=== PATIENT | female | born 1945 | race Caucasian/White ===

== ENCOUNTER 2017-02-26 13:14 | Outpatient (CLI) | payer MEDICARE, OTHER ==
--- NOTE | 2017-02-27 09:17 | PET ---
PET CT: HISTORY: A 71-year-old female with recently diagnosed colon cancer (rectal). Exam requested for initial stagi ng. TECHNIQUE: PET scanning with CT attenuation correction was performed from the base of the brain through the prox imal thighs following intravenous administration of 12.1 mCi [id number] in the right wris t. Imaging was performed after an uptake interval of 46 minutes. FINDINGS: There is intense uptake in the rectosigmoid with an SUV of 19.3. No christopher hypermetabolism is seen in the pelvis, inguinal regions, abdomen, chest, axillae, or neck. No hypermetabolic liver, adrenal, or skeletal lesions are identified. There is physiologic activity in the GI and tracts and the visualized portions of the brain. The CT scan used for attenuation correction demonstrates no evidence of pleural effusions or ascites. There are changes of fatty infiltration of the liver. A 2.7 cm nonhypermetabolic left adrenal nodu le is seen with Hounsfield units less than 10, consistent with adenoma. There is sigmoid diverticulo sis. There is a 1.9 cm exophytic mass arising over the left anterior renal cortex. IMPRESSION: 1. No evidence of distant metastatic disease. 2. Left renal mass. This should be evaluated with a renal ultrasound. POS: MAYRA
== END 2017-02-26 13:15 | disposition home or self-care (01) ==
LOC: PET 13:14
PROVIDERS: ATTEND Internal Medicine Hematology & Oncology
DX: C19 Malignant neoplasm of rectosigmoid junction (principal); N28.89 Other specified disorders of kidney and ureter
CPT/HCPCS: 78815; A9552

== ENCOUNTER 2017-09-23 15:52 | Inpatient (IN) | payer MEDICARE ==
[2017-09-23 16:50] LABS: Bilirubin Negative (Negative); Blood, Urine Large (Negative); Clarity Cloudy (Clear); Glucose, Urine (Dipstick) Negative (Negative); Leukocyte Moderate (Negative); Nitrite Negative (Negative); Protein, Urine (Dipstick) 30 mg/dL (Neg-Trace); Urobilinogen 0.2 mg/dL (0.2-1.0)
[2017-09-23 16:58] LABS: Bacteria/HPF 1+ HPF (None Seen); RBC/HPF GREATER THAN 50-TNTC HPF (0-3); WBC/HPF 21-50 HPF (0-3)
[2017-09-23 16:59] LABS: Renal Epithelial 0-3 HPF (0-3); Transitional Epithelial 0-3 HPF (0-3)
[2017-09-23 17:00] LABS: Hyaline Casts/LPF 0-3 HYALINE CAST LPF (0-3 Hyaline)
--- NOTE | 2017-09-23 17:10 | RAD ---
PORTABLE CHEST ONE VIEW: 09/23/2017 3:58 p.m. HISTORY: Altered mental status. FINDINGS: The heart size is prominent. The aorta is tortuous. There is mild elevation of the right hemidiaphr agm. The lungs are well expanded without confluent areas of consolidation, pneumothorax, armando pulmo nary edema, or pleural effusions. POS: H
[2017-09-23 17:35] LABS: #Lymphocytes 1.1 thou/uL (1.20-3.40); #Monocytes 0.9 thou/uL (0.11-0.59); #Neutrophils 6.8 thou/uL (1.40-6.50); %Basophils 0.1 % (0.0-1.0); %Eosinophils 0.4 % (0.0-10.0); %Lymphocytes 12.7 % (21.0-51.0); %Monocytes 10.5 % (0.0-10.0); %Neutrophils 76.3 % (42.0-75.0); Hemoglobin 11.1 g/dL (12.0-16.0); Mean Corpuscular HGB CONC 35.1 g/dL (32.0-36.0); Mean Corpuscular Hemoglobin 29.5 pg (27.0-31.0); Mean Platelet Volume 7.1 fL (7.4-10.4); Platelet Count 245 thou/uL (130-400); RBC Distribution Width 15.1 % (11.5-14.5); Red Blood Cell (RBC) Count 3.76 mill/uL (4.20-5.40); White Blood Cell (WBC) Count 8.9 thou/uL (4.8-10.8)
[2017-09-23 17:58] LABS: ALT (SGPT) 7 U/L (8-55); AST (SGOT) 10 U/L (5-34); Albumin 2.5 g/dL (3.4-4.8); Alkaline Phosphatase 55 U/L (40-150); Anion Gap 10 mmol/L (10-20); BUN (Urea Nitrogen) 85 mg/dL (9.8-20.1); Bilirubin, Total 0.2 mg/dL (0.2-1.2); CK (CPK) 12 U/L (29-168); Calc. Creatinine Clearance 0 mL/min (70-130); Carbon Dioxide 15 mmol/L (23-31); Chloride 106 mmol/L (98-107); Estimated GFR-MDRD 10; Globulin 2.1 g/dL (2.4-3.5); Glucose 78 mg/dL (83-110); Lipase 294 U/L (8-78); Protein, Total 4.6 g/dL (6.0-8.3); Sodium 129 mmol/L (136-145)
[2017-09-23 17:59] LABS: CKMB 0.9 ng/mL (0-6.6); Troponin I Less than 0.010 ng/mL (< 0.028)
[2017-09-23 18:03] LABS: Potassium 2.4 mmol/L (3.5-5.1)
[2017-09-23] MEDS ORDERED: Potassium Chloride 40 MEQ in Sodium Chloride 0.9% 250 ML 250 ML IVPB SCH (19:00)
[2017-09-23] MEDS ORDERED: Ondansetron ODT 4 MG TAB SL PRN (22:49)
[2017-09-23] MEDS ORDERED: Ondansetron HCl/PF 4 MG/2 ML Vial IVP PRN (22:49)
[2017-09-23] MEDS ORDERED: Sodium Chloride 0.9% 1,000 ML IV SCH (22:51)
[2017-09-23] MEDS ORDERED: Acetaminophen 325 MG TAB PO PRN (22:58)
[2017-09-23] MEDS ORDERED: Ondansetron ODT 4 MG TAB PO PRN (22:58)
[2017-09-23] MEDS ORDERED: cefTRIAXone\\ROCEPHIN 1 GM in Sodium Chloride 0.9% 100 ML IVPB SCH (23:30)
--- NOTE | 2017-09-24 01:29 | CON ---
NEPHROLOGY CONSULTATION DATE OF CONSULTATION: 09/23/2017 REASON FOR CONSULTATION: Elevated creatinine. HISTORY OF PRESENT ILLNESS: This is a very pleasant 72-year-old female who presented to the hospital with a baseline creatinine which increased from less than 1 to more than 4. The patient had severe diarrhea, no vomiting. Had low blood pressure. The patient denies headache, numbness, tingling, wea kness, nausea or chest pain. PAST MEDICAL HISTORY: Congestive heart failure, hypertension, tachycardia, arthritis, history of col on cancer, history of iron deficiency. SOCIAL HISTORY: No alcohol or drugs abuse. FAMILY HISTORY: Negative for ESRD. HOME MEDICATIONS: List reviewed. HOSPITAL MEDICATIONS: List reviewed. ALLERGIES: Reviewed. REVIEW OF SYSTEMS: A 15-point review of systems was performed and negative except all noted above. GENERAL: Weakness- HEAD: Headache- NECK: No swelling or lumps. NOSE: No epistaxis or discharge. EYES: No diplopia or pain. 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 NEUROPSYCHIATIC SYSTEMS: No suicidal ideation. No ideation. SKIN: Denies any rash or ulcer. CONSTITUTIONAL: No fever or chills. PHYSICAL EXAMINATION: GENERAL: Patient is awake, alert. VITAL SIGNS: Afebrile, pulse 70, breathing 16, blood pressure was 86/40. GENERAL APPEARANCE AND MENTAL STATUS: Fair. HEAD/NECK: Normocephalic. Atraumatic. EYES: EOMI. No deformity. EARS: Clear. No ulcers. NOSE: Intact. No lesions. MOUTH: Clear. No discharge. THROAT: Clear. No exudate. LUNGS: Clear. No crackles. CARDIAC: S1, S2. No rub. ABDOMEN: Benign. BS+. GENITALIA/RECTUM: Pan absent. BACK/EXTREMITIES: Edema 0+ Ulcer- NEUROLOGICAL: Alert and motor intact. SKIN: Rash- Bruise- LYMPHATICS: Edema- Ulcer- LABORATORY: Hemoglobin 11.1, creatinine 4.1, potassium 2.4. ASSESSMENT AND RECOMMENDATIONS: 1. Acute kidney injury with chronic kidney disease, most likely due to decreased effective arterial blood volume. We would recommend aggressive hydration. 2. Hypokalemia. Recommend 40 mEq potassium. 3. Metabolic acidosis due to diarrhea. 4. Hyponatremia due to renal failure. No indication for dialysis. I would recheck the labs again i n one hour.
[2017-09-24 04:30] LABS: #Monocytes 0.6 thou/uL (0.11-0.59); #Neutrophils 4.8 thou/uL (1.40-6.50); %Basophils 0.2 % (0.0-1.0); %Eosinophils 0.7 % (0.0-10.0); %Monocytes 9.6 % (0.0-10.0); %Neutrophils 73.4 % (42.0-75.0); Hemoglobin 10.8 g/dL (12.0-16.0); Mean Corpuscular HGB CONC 33.7 g/dL (32.0-36.0); Mean Corpuscular Hemoglobin 29.1 pg (27.0-31.0); Mean Corpuscular Volume 86.3 fL (78.0-98.0); Mean Platelet Volume 6.8 fL (7.4-10.4); Platelet Count 231 thou/uL (130-400); RBC Distribution Width 15.6 % (11.5-14.5); Red Blood Cell (RBC) Count 3.72 mill/uL (4.20-5.40); White Blood Cell (WBC) Count 6.5 thou/uL (4.8-10.8)
[2017-09-24 04:49] LABS: Anion Gap 12 mmol/L (10-20); BUN (Urea Nitrogen) 71 mg/dL (9.8-20.1); Calc. Creatinine Clearance 17 mL/min (70-130); Calcium 7.9 mg/dL (7.8-10.44); Carbon Dioxide 11 mmol/L (23-31); Chloride 113 mmol/L (98-107); Estimated GFR-MDRD 15; Glucose 76 mg/dL (83-110); Sodium 133 mmol/L (136-145)
--- NOTE | 2017-09-24 04:51 | HP ---
CHIEF COMPLAINT: Diarrhea. HISTORY OF PRESENT ILLNESS: This patient is a gopi 72-year-old female with a history of colon canc er diagnosed in the fall of 2016. Patient had some neoadjuvant chemoradiation and subsequent partial colectomy with a colostomy. She has been doing well, but she followed up with Dr. Reynolds, who disc ussed with her the possibility of doing some additional therapy in order to reduce the potential risk of recurrence, although the pathology according to the patient did not show any lymph node involveme nt following her partial colectomy. She agreed to try that, but subsequently she developed some naus ea and vomiting that was fairly persistent for several days, but ultimately resolved about 6 days ago . Since that time; however, she has had fairly persistent diarrhea primarily manifesting as feeling her colostomy with significant liquid stools. She has been eating and drinking during that time. Sh jailene felt like she was drinking adequate fluids. REVIEW OF SYSTEMS: Eleven-system review was negative except for those things mentioned in the histor y of present illness. PAST MEDICAL HISTORY: Notable for congestive heart failure, gastroesophageal reflux disease, hyperte nsion, osteoarthritis, and the above-mentioned colon cancer treated with neoadjuvant chemoradiation s urgery, and then some followup chemo. FAMILY HISTORY: Reviewed and is unremarkable. SOCIAL HISTORY: Former smoker, quit over 10 years ago. Denies any alcohol or drugs. She lives at [facility] alone. PAST SURGICAL HISTORY: Including hemorrhoidectomy, cholecystectomy, and the colectomy with colostomy . ALLERGIES: SULFA. CURRENT MEDICATIONS: 1. Ascorbic acid 500 mg p.o. daily 2. Aspirin 81 mg every day. 3. Carvedilol 12.5 mg one p.o. b.i.d. 4. B12 of 500 mg p.o. daily. 5. Lasix 20 mg one-half tablet every other day as needed. 6. Multivitamin one p.o. daily. 7. Protonix 40 mg p.o. daily. 8. Spironolactone 25 mg one-half tablet p.o. daily. 9. Valsartan 40 mg 1.5 tabs p.o. daily. PHYSICAL EXAMINATION: VITAL SIGNS: Initially in the emergency department, patient was hypotensive with systolic in the 80s . Presently, she is still hypotensive with blood pressure 88/60. GENERAL APPEARANCE: Patient is awake, alert, oriented, very pleasant, cooperative. She is in no acu te distress. HEENT: PERRL. No OP lesions. NECK: Supple and symmetric. She has no carotid bruits, although her carotid pulses slightly diminis hed on the right compared to the left. CARDIOVASCULAR: Regular rate and rhythm with no murmurs, gallops, or rubs. CHEST: Lungs are clear to auscultation bilaterally with very slight rales in the right base. ABDOMEN: Soft, nontender, nondistended. Colostomy in place and appears to be intact and in good con dition. EXTREMITIES: Somewhat cool to touch, but has fairly good refill presently. LABORATORY DATA: White blood cell count 8.9, hemoglobin 11.1, platelets 245. Sodium 129, potassium 2.4, chloride 106, CO2 is 15, BUN 85, creatinine 4.19, glucose 78. AST is 25, ALT 7. CK is 12, albu min 2.5. Urinalysis cloudy yellow urine with a specific gravity 1.020. There is large blood with gr eater than 50 red cells, 21 to 30 white blood cells, 7-10 squamous cells, moderate leukocyte esterase , negative nitrite, so far C. diff is negative. Rapid parasite screen negative for Giardia and Crypt osporidium. Campylobacter antigen negative. Negative for E. coli, Shiga toxin. Chest x-ray reveale d some elevated right hemidiaphragm, tortuous aorta, but no acute cardiopulmonary findings. IMPRESSION AND PLAN: 1. Severe dehydration. This patient has had nausea and vomiting followed by three liquid output fro m her colostomy. She appears to have severe prerenal azotemia. She is going to receive aggressive h ydration to the extent that we can give her history of congestive heart failure. 2. Acute renal insufficiency. Patient's prior creatinines were completely normal. Now BUN and crea tinine are substantially elevated, but this appears to be consistent with her prerenal state from deh ydration. We will continue to monitor and hydrate. We will likely take several days for this to nor malize. Assuming the kidneys have not sustained some type of injury from her dehydration and relativ e hypotension. 3. Hypotension, this appears to be more likely related to volume. She is actually pretty stable wit h her systolic in the upper 80s that is not fluctuated a lot. She is making some urine now, it is re latively clear but not significantly large volumes of that. 4. Urinary tract infection, this patient has a fair amount of blood in the urine. It is unclear if this was some Pan trauma or she really does have some infection. She received a dose of Levaquin i n the ER. We will cover with Rocephin given her renal function. Follow up on urine cultures. 5. Nausea, vomiting. This appears to be resolved. 6. Diarrhea. Patient is having significant liquid output from her colostomy. We will see if this w ill resolve with rehydration and antibiotics. If not, we will need to investigate further and potent ially treat symptomatically. 7. History of colon cancer. This patient has been apparently fully treated for the active disease a nd believes that at this point, she will likely be done with her followup treatment as well. 8. History of hypertension. We will likely need to hold her home antihypertensives and certainly we will need to hold her home diuretics. 9. History of congestive heart failure. I do not have a recent echocardiogram or ejection fraction documented. Would not need to pursue that unless there is some issues suggesting worsening evidence of congestive heart failure.
[2017-09-24] MEDS: Heparin 5,000 UNITS/ML VIAL SC SCH ×2 (08:27→20:56)
[2017-09-24] MEDS: Famotidine 20 MG TAB PO SCH (08:27)
[2017-09-24] MEDS ORDERED: Potassium Chloride 20 MEQ TAB PO SCH ×3 (08:30→15:30)
--- NOTE | 2017-09-24 09:57 | CON ---
DATE OF CONSULTATION: 09/24/2017 Total time of consultation, 70 minutes, of that greater than 50% was spent with the patient and/or in the patient's room. REASON FOR CONSULTATION: Hypotension. HISTORY OF PRESENT ILLNESS: This is a 72-year-old female who came in last night with several days of voluminous diarrhea through her colostomy. It was felt that she was dehydrated from this. She is h ypotensive. This responded to fluid. PAST MEDICAL AND SURGICAL HISTORY: 1. Hemorrhoidectomy. 2. Cholecystectomy. 3. Colectomy with colostomy for colon cancer. 4. Congestive heart failure. 5. Osteoarthritis. FAMILY MEDICAL HISTORY: Unremarkable. SOCIAL HISTORY: Quit smoking 10 years ago. ALLERGIES: SULFA. MEDICATIONS: Prior to admission, ascorbic acid, aspirin, carvedilol, vitamin B12, Lasix, multivitami n, Protonix, spironolactone, valsartan. REVIEW OF SYSTEMS: A 12-point review of systems otherwise negative. PHYSICAL EXAMINATION: VITAL SIGNS: Temperature 97.8, pulse 85, respirations 18, O2 sat 99%, blood pressure 81/50. GENERAL: She is awake and alert in no distress. HEENT: Pupils react. Sclerae anicteric. Oropharynx clear. NECK: No adenopathy, no JVD, no bruits. LUNGS: Clear. CARDIOVASCULAR: S1, S2 regular, without murmur. ABDOMEN: Colostomy noted, has brown liquid. Abdomen is soft, nontender. EXTREMITIES: No edema. LABORATORY DATA: Sodium 133, potassium 3.0, chloride 113, CO2 11, BUN 71, creatinine 3.0, glucose 76 . White blood cell count 6.5, hematocrit 32, platelet count 231. Stool was negative for C. diff. ASSESSMENT: 1. Diarrheal illness with severe volume depletion. 2. Hypotension secondary to volume depletion. PLAN: 1. Hydration. 2. She is on empiric antibiotics. 3. Electrolytes are being replaced. 4. Might need to consider GI consultation.
--- NOTE | 2017-09-24 10:07 | PRG ---
DATE OF SERVICE: 09/24/2017 SUBJECTIVE: This is a 72-year-old female being seen for acute kidney injury with improving creatinin e. The patient denies any nausea, vomiting, or chest pain. PHYSICAL EXAMINATION: GENERAL: Patient is awake and alert. VITAL SIGNS: Afebrile, pulse 85, breathing at 16, blood pressure was 81/48. OBJECTIVE: See above. Awake, alert, in no acute distress. GENERAL APPEARANCE AND MENTAL STATUS: Fair. HEAD/NECK: Normocephalic. Atraumatic. EYES: EOMI. No deformity. EARS: Clear. No ulcers. NOSE: Intact. No lesions. MOUTH: Clear. No discharge. THROAT: Clear. No exudate. LUNGS: Clear. No crackles. CARDIAC: S1, S2. No rub. ABDOMEN: Benign. BS+. GENITALIA/RECTUM: Pan absent. BACK/EXTREMITIES: Edema 0+ Ulcer- NEUROLOGICAL: Alert and motor intact. SKIN: Rash- Bruise- LYMPHATICS: Edema- Ulcer- LABORATORY: Hemoglobin 10.8, creatinine 3.0. ASSESSMENT AND RECOMMENDATIONS: 1. Acute kidney injury with chronic kidney disease stage 4, improved. 2. Hypertension, stable. 3. Anemia, stable. 4. Hypokalemia. Recommend aggressive potassium replacement. 5. Metabolic acidosis. I would recommend aggressive bicarbonate replacement once potassium is corre cted to 4. 6. I would also check a magnesium level.
[2017-09-24 11:54] LABS: Potassium 2.9 mmol/L (3.5-5.1)
[2017-09-24] MEDS ORDERED: NS 0.9% w/ 20 MEQ KCL 1,000 ML/1,000 ML BAG IV SCH (13:30)
--- NOTE | 2017-09-24 14:09 | PDOC.PN ---
- Subjective Encounter Start Date: 09/24/17 Encounter Start Time: 12:30 Subjective: pt up in bed no complains - Objective Resuscitation Status: Resuscitation Status FULL:Full Resuscitation Vital Signs & Weight: Vital Signs (12 hours) Temp Pulse Resp BP Pulse Ox 09/24/17 11:27 98.5 F 84 20 83/51 L 100 09/24/17 09:45 97.8 F 85 18 99 09/24/17 07:38 97.8 F 85 18 81/50 L 99 09/24/17 04:00 96.4 F L 77 14 81/48 L 99 Weight Admit Weight 145 lb 4.8 oz Weight 145 lb 4.8 oz I&O: 09/23/17 09/24/17 09/25/17 06:59 06:59 06:59 Intake Total 1410 Output Total 1275 Balance 135 Result Diagrams: 09/24/17 04:16 09/24/17 11:18 Phys Exam - Physical Examination HEENT: PERRLA, moist MMs, sclera anicteric, TM's clear, oral pharynx no lesions , 2+ tonsils Neck: no nodes, no JVD, supple, full ROM Respiratory: no wheezing, no rales, no rhonchi, wheezing present, clear to auscultation bilateral Cardiovascular: RRR, no significant murmur, no rub, gallop, irregular colostomy bag, mid abd scar, bsx2, non tender abdomen on palpation Musculoskeletal: no edema, pulses present, edema present Dx/Plan (1) Gastroenteritis Code(s): K52.9 - NONINFECTIVE GASTROENTERITIS AND COLITIS, UNSPECIFIED Status : Acute (2) Dehydration, severe Code(s): E86.0 - DEHYDRATION Status: Acute (3) Prerenal acute renal failure Code(s): N17.9 - ACUTE KIDNEY FAILURE, UNSPECIFIED Status: Acute - Plan all stool cx negative, pt's colostomy output according to pt is slowing -: down. will discontinue abx for now. K added to pt's iv fluids -: will check bmp later today. pt has good urine output -: Map improving * . Review of Systems - Review of Systems Eyes: negative: Pain, Vision Change, Conjunctivae Inflammation, Eyelid Inflammation, Redness, Other ENT: negative: Ear Pain, Ear Discharge, Nose Pain, Nose Discharge, Nose Congestion, Mouth Pain, Mouth Swelling, Throat Pain, Throat Swelling, Other Respiratory: negative: Cough, Dry, Shortness of Breath, Hemoptysis, SOB with Excertion, Pleuritic Pain, Sputum, Wheezing Cardiovascular: negative: chest pain, palpitations, orthopnea, paroxysmal nocturnal dyspnea, edema, light headedness, other Gastrointestinal: negative: Nausea, Vomiting, Abdominal Pain, Diarrhea, Constipation, Melena, Hematochezia, Other - Medications/Allergies Allergies/Adverse Reactions: Allergies Allergy/AdvReac Type Severity Reaction Status Date / Time Sulfa (Sulfonamide Allergy Verified 09/23/17 18:56 Antibiotics) Medications: Current Medications Acetaminophen (Tylenol) 650 mg PO Q4H PRN PRN Reason: Headache/Fever or Pain Famotidine (Pepcid) 20 mg PO DAILY [facility] Last Admin: 09/24/17 08:27 Dose: 20 mg Heparin Sodium (Porcine) (Heparin) 5,000 units SC BID [facility] Last Admin: 09/24/17 08:27 Dose: 5,000 units Ceftriaxone Sodium 1 gm/ (Sodium Chloride) 100 mls @ 200 mls/hr IVPB Q24HR [facility] Last Admin: 09/23/17 23:47 Dose: 100 mls Potassium Chloride/Sodium Chloride (Ns 0.9% W/ 20 Meq Kcl) 1,000 ml in 1,000 mls @ 125 mls/hr IV .Q8H [facility] Ondansetron HCl (Zofran) 4 mg IVP Q6H PRN PRN Reason: Nausea/Vomiting Stop: 09/24/17 17:00 Ondansetron HCl (Zofran Odt) 4 mg PO Q6H PRN PRN Reason: Nausea/Vomiting Sodium Chloride (Flush - Normal Saline) 10 ml IVF Q12HR [facility] Last Admin: 09/24/17 08:27 Dose: 10 ml Sodium Chloride (Flush - Normal Saline) 10 ml IVF PRN PRN PRN Reason: Saline Flush
[2017-09-24 17:10] LABS: Anion Gap 11 mmol/L (10-20); BUN (Urea Nitrogen) 52 mg/dL (9.8-20.1); Calc. Creatinine Clearance 29 mL/min (70-130); Calcium 8.1 mg/dL (7.8-10.44); Carbon Dioxide 13 mmol/L (23-31); Chloride 118 mmol/L (98-107); Estimated GFR-MDRD 28; Glucose 99 mg/dL (83-110); Sodium 138 mmol/L (136-145)
[2017-09-24] MEDS ORDERED: Sodium Bicarbonate 50 MEQ in Dextrose 5% in Water 1,000 ML IV SCH (18:15)
--- NOTE | 2017-09-24 18:40 | CON ---
DATE OF CONSULTATION: 09/24/2017 REASON FOR CONSULTATION: Rectal cancer. HISTORY OF PRESENT ILLNESS: Ms. Sutton is a pleasant 72-year-old female who presented to [facility] emergency room with severe dehydration and hypotension. She has a stage III rectal adenocarcinoma, underwent neoadjuvant chemo and radiation. She then underwent an APR with colostomy placement in . She was started on adjuvant 5 infusional 5-FU. She received her 5-day dose on 09/09/2017. S he next week began to have some nausea and vomiting. She did control it with Zofran, it stopped abou t Saturday and then she began to have significant diarrhea. Her home health nurse saw her yesterday , she had a blood pressure of 60/38. She was referred to the emergency room. There, she was found t o have an elevated creatinine and severe dehydration. She was admitted for hydration. Patient state s that her nausea is completely resolved. She continues to have large volume stool out of her colost attila bag. She denies any chest pain or shortness of breath. She is taking p.o. at this time. PAST MEDICAL HISTORY: 1. Stage III rectal adenocarcinoma. 2. History of iron deficient anemia. 3. Congestive heart failure. 4. Hypertension. 5. Hemorrhoids. PAST SURGICAL HISTORY: 1. Gallbladder. 2. Heart catheterization. 3. APR and colostomy 06/2017. ALLERGIES: SULFA. HOME MEDICATIONS: 1. Coreg 12.5 mg p.o. b.i.d. 2. Protonix 40 mg daily. 3. Aldactone 25 mg half a tab daily. 4. Zofran p.r.n. FAMILY HISTORY: Father had prostate cancer. She has a sibling with uterine cancer. SOCIAL HISTORY: . Has 2 children, lives alone. No alcohol, tobacco or illicit drug use. REVIEW OF SYSTEMS: Negative except for diarrhea. PHYSICAL EXAMINATION: VITAL SIGNS: Temperature is 97.6, pulse is 77, respiratory rate 16, BP is 98/62. She is 100% on mart m air. GENERAL: This is a chronically ill-appearing female in no acute distress. HEENT: Normocephalic, atraumatic. Pupils are equal and reactive to light. NECK: Supple. CARDIOVASCULAR: Regular rate and rhythm. LUNGS: Clear. ABDOMEN: Soft, nontender, bowel sounds are positive. She has a colostomy in the right lower quadran t with large volume green stool. EXTREMITIES: No clubbing, cyanosis or edema. SKIN: No rash. HEMATOLOGIC: No petechia or purpura. NEUROLOGIC: Nonfocal. PSYCHIATRIC: The patient is alert and oriented and appropriate. PERTINENT LABORATORY AND X-RAYS: Current WBCs are 6.5, hemoglobin 10.8, hematocrit 32.1, platelet co unt is 231,000. She has 74% neutrophils, 16% lymphocytes. Sodium is 133, potassium 2.9, chloride 11 3, CO2 is 11, BUN is 71, creatinine 3.01, calcium is 7.9, total bilirubin is 0.2, AST is 10, ALT 7, a lkaline phosphatase is 55, creatine kinase is 12. Troponin is negative. Serum total protein is 4.6, albumin 2.5, globulin 2.1, lipase is 294. Urine showed 1+ bacteria. Chest x-ray showed no acute pr ocess. IMPRESSION: 1. Stage III rectal adenocarcinoma status post APR and adjuvant chemotherapy with infusional 5-FU. 2. Diarrhea. 3. Hypotension. 4. Dehydration. 5. Acute kidney injury. DISCUSSION: The patient has been admitted to the IMU. She is receiving IV hydration and her blood p ressure has responded and is now in the 90s to low 100s. She is tolerating p.o.. She continues to h ave a large volume of stool in her colostomy. Her kidney dysfunction has been managed by a nephrolog ist. We will provide supportive care. It is unlikely that she will receive further adjuvant chemoth erapy, but we will follow up with the patient after discharge in the office to discuss further monito ring. Thank you for the consult. We will follow her remotely.
[2017-09-24] MEDS: Sodium Bicarbonate 150 MEQ in Dextrose 5% in Water 1,000 ML IV SCH (18:56)
[2017-09-24 20:40] LABS: Anion Gap 10 mmol/L (10-20); BUN (Urea Nitrogen) 46 mg/dL (9.8-20.1); Calc. Creatinine Clearance 30 mL/min (70-130); Calcium 8.2 mg/dL (7.8-10.44); Carbon Dioxide 13 mmol/L (23-31); Chloride 119 mmol/L (98-107); Estimated GFR-MDRD 29; Glucose 103 mg/dL (83-110); Potassium 4.2 mmol/L (3.5-5.1); Sodium 138 mmol/L (136-145)
[2017-09-24] MEDS: cefTRIAXone\\ROCEPHIN 1 GM in Sodium Chloride 0.9% 100 ML IVPB SCH (22:28)
[2017-09-25] MEDS: Sodium Bicarbonate 150 MEQ in Dextrose 5% in Water 1,000 ML IV SCH (06:25)
[2017-09-25] MEDS: Famotidine 20 MG TAB PO SCH (09:34)
[2017-09-25] MEDS: Heparin 5,000 UNITS/ML VIAL SC SCH ×2 (09:35→20:22)
--- NOTE | 2017-09-25 13:38 | PRG ---
DATE OF SERVICE: 09/25/2017 SERVICE: Pulmonary Medicine. INTERVAL HISTORY: The patient indicates that she feels much better. She actually got out of bed and stood up yesterday. She did not have any dizziness with that. She denies any current chest pain, n ausea, vomiting, fevers or chills. Otherwise, there has been no interval change to her condition. U rine output has actually picked up. There were no events overnight. PHYSICAL EXAMINATION: VITAL SIGNS: Afebrile currently with a T-max of 100.0, pulse 126, blood pressure 133/101, respiratio ns 22, saturation 93% on room air. GENERAL: The patient is awake, alert, in no apparent distress. LUNGS: Decent air entry. There is no prolonged expiratory phase or wheezing. HEART: Tachycardic. Regular. ABDOMEN: Soft, nontender and nondistended. Bowel sounds are positive. MUSCULOSKELETAL: No cyanosis or clubbing. There is no pitting in the bilateral lower extremities. No skin tenting is present. GENITOURINARY: Pan catheter is present. NEUROLOGIC: Grossly nonfocal. LABORATORY DATA: Potassium 4.2, creatinine down trending to 1.71, bicarbonate 13. Basic metabolic p rofile is otherwise unremarkable. BUN 46 and gently down trending. Urine culture is growing E. coli which is pansensitive. Blood cultures x2 are unremarkable. ASSESSMENT: 1. Diarrhea. 2. Dehydration, severe. 3. Hypotension, resolved. DISCUSSION AND PLAN: The patient has been adequately resuscitated. We will back off on her bicarbon ate drip and put her on D5 water with 1.5 amps of bicarbonate. I will drop the rate to 75 per hour. Pan catheter will be removed today and we will get the patient out of bed into a chair. We will s tart mobilization efforts. From my perspective, she is stable for transition to the medical unit.
--- NOTE | 2017-09-25 14:55 | PRG ---
DATE OF SERVICE: 09/25/2017 SUBJECTIVE: A 72-year-old female being seen for acute kidney injury. The patient denies any nausea, vomiting or chest pain. OBJECTIVE: GENERAL: Patient is awake, alert. VITAL SIGNS: Afebrile, pulse 74, breathing 16, blood pressure 122/60. HEENT: Atraumatic, normocephalic. Oral mucosa is moist. NECK: Supple. CARDIOVASCULAR: S1 and S2 heard. Rate and rhythm regular. RESPIRATORY: Clear to auscultation. GASTROINTESTINAL: Abdomen is soft. MUSCULOSKELETAL: No tenderness. No edema. DERMATOLOGIC: No skin rash. NEUROLOGIC: Alert and awake and oriented x3. No focal neurologic deficits. Moving all the extremit ies. PSYCHIATRIC: Mood and affect normal. LABORATORY: Hemoglobin is 10.8, potassium 4.2, bicarbonate 13, creatinine 1.7. ASSESSMENT AND RECOMMENDATIONS: 1. Acute kidney injury, improved. 2. Hypokalemia, improved. 3. Metabolic acidosis, improving. Continue bicarbonate drip. No indication for dialysis at this ti me.
--- NOTE | 2017-09-25 15:03 | PDOC.PN ---
- Subjective Encounter Start Date: 09/25/17 Encounter Start Time: 11:00 Subjective: pt up in bed no complains - Objective Resuscitation Status: Resuscitation Status FULL:Full Resuscitation Vital Signs & Weight: Vital Signs (12 hours) Temp Pulse Resp BP Pulse Ox 09/25/17 11:53 97.6 F 74 16 122/60 100 09/25/17 08:00 97.5 F L 66 17 09/25/17 07:36 97.5 F L 66 17 122/60 100 09/25/17 04:00 97.6 F 77 16 125/66 100 Weight Admit Weight 145 lb 4.8 oz Weight 144 lb I&O: 09/24/17 09/25/17 09/26/17 06:59 06:59 06:59 Intake Total 1410 4343 Output Total 1275 3425 600 Balance 135 918 -600 Result Diagrams: 09/24/17 04:16 09/24/17 20:04 Phys Exam - Physical Examination HEENT: PERRLA, moist MMs, sclera anicteric, TM's clear, oral pharynx no lesions , 2+ tonsils Neck: no nodes, no JVD, supple, full ROM Respiratory: no wheezing, no rales, no rhonchi, wheezing present, clear to auscultation bilateral Cardiovascular: RRR, no significant murmur, no rub, gallop, irregular Gastrointestinal: soft, positive bowel sounds colostomy Musculoskeletal: no edema, pulses present, edema present Neurological: non-focal, normal sensation, moves all 4 limbs Dx/Plan (1) Gastroenteritis Code(s): K52.9 - NONINFECTIVE GASTROENTERITIS AND COLITIS, UNSPECIFIED Status : Acute (2) Dehydration, severe Code(s): E86.0 - DEHYDRATION Status: Acute (3) Prerenal acute renal failure Code(s): N17.9 - ACUTE KIDNEY FAILURE, UNSPECIFIED Status: Acute (4) Metabolic acidosis Code(s): E87.2 - ACIDOSIS Status: Acute - Plan pt vitals stable -: pt on bicarb drip * . Review of Systems - Review of Systems Eyes: negative: Pain, Vision Change, Conjunctivae Inflammation, Eyelid Inflammation, Redness, Other ENT: negative: Ear Pain, Ear Discharge, Nose Pain, Nose Discharge, Nose Congestion, Mouth Pain, Mouth Swelling, Throat Pain, Throat Swelling, Other Respiratory: negative: Cough, Dry, Shortness of Breath, Hemoptysis, SOB with Excertion, Pleuritic Pain, Sputum, Wheezing Cardiovascular: negative: chest pain, palpitations, orthopnea, paroxysmal nocturnal dyspnea, edema, light headedness, other Gastrointestinal: negative: Nausea, Vomiting, Abdominal Pain, Diarrhea, Constipation, Melena, Hematochezia, Other Genitourinary: negative: Dysuria, Frequency, Incontinence, Hematuria, Retention , Other - Medications/Allergies Allergies/Adverse Reactions: Allergies Allergy/AdvReac Type Severity Reaction Status Date / Time Sulfa (Sulfonamide Allergy Verified 09/23/17 18:56 Antibiotics) Medications: Current Medications Acetaminophen (Tylenol) 650 mg PO Q4H PRN PRN Reason: Headache/Fever or Pain Famotidine (Pepcid) 20 mg PO DAILY [facility] Last Admin: 09/25/17 09:34 Dose: 20 mg Heparin Sodium (Porcine) (Heparin) 5,000 units SC BID [facility] Last Admin: 09/25/17 09:35 Dose: 5,000 units Ceftriaxone Sodium 1 gm/ (Sodium Chloride) 100 mls @ 200 mls/hr IVPB 2300 [facility] Stop: 09/26/17 23:59 Last Admin: 09/24/17 22:28 Dose: 100 mls Sodium Bicarbonate 75 meq/ (Dextrose/Water) 1,075 mls @ 75 mls/hr IV .[id number] [facility] Ondansetron HCl (Zofran Odt) 4 mg PO Q6H PRN PRN Reason: Nausea/Vomiting Sodium Chloride (Flush - Normal Saline) 10 ml IVF Q12HR [facility] Last Admin: 09/25/17 09:35 Dose: 10 ml Sodium Chloride (Flush - Normal Saline) 10 ml IVF PRN PRN PRN Reason: Saline Flush
[2017-09-25 15:22] LABS: Anion Gap 11 mmol/L (10-20); BUN (Urea Nitrogen) 28 mg/dL (9.8-20.1); Calc. Creatinine Clearance 52 mL/min (70-130); Carbon Dioxide 20 mmol/L (23-31); Chloride 113 mmol/L (98-107); Estimated GFR-MDRD 55; Glucose 116 mg/dL (83-110); Potassium 3.3 mmol/L (3.5-5.1); Sodium 141 mmol/L (136-145)
[2017-09-25] MEDS: Sodium Bicarbonate 75 MEQ in Dextrose 5% in Water 1,000 ML IV SCH (16:23)
[2017-09-25] MEDS: cefTRIAXone\\ROCEPHIN 1 GM in Sodium Chloride 0.9% 100 ML IVPB SCH (23:01)
[2017-09-26 05:11] LABS: #Eosinphils 0.1 thou/uL (0.0-0.7); #Lymphocytes 0.7 thou/uL (1.20-3.40); #Monocytes 0.3 thou/uL (0.11-0.59); %Basophils 0.4 % (0.0-1.0); %Eosinophils 4.3 % (0.0-10.0); %Lymphocytes 22.7 % (21.0-51.0); %Monocytes 10.6 % (0.0-10.0); Hemoglobin 10.2 g/dL (12.0-16.0); Mean Corpuscular HGB CONC 34.3 g/dL (32.0-36.0); Mean Corpuscular Volume 84.5 fL (78.0-98.0); Mean Platelet Volume 6.7 fL (7.4-10.4); Platelet Count 235 thou/uL (130-400); RBC Distribution Width 15.6 % (11.5-14.5); Red Blood Cell (RBC) Count 3.51 mill/uL (4.20-5.40); White Blood Cell (WBC) Count 3.3 thou/uL (4.8-10.8)
[2017-09-26 05:34] LABS: Anion Gap 10 mmol/L (10-20); BUN (Urea Nitrogen) 19 mg/dL (9.8-20.1); Calc. Creatinine Clearance 72 mL/min (70-130); Calcium 7.9 mg/dL (7.8-10.44); Carbon Dioxide 23 mmol/L (23-31); Chloride 110 mmol/L (98-107); Estimated GFR-MDRD 80; Glucose 95 mg/dL (83-110); Magnesium 1.3 mg/dL (1.6-2.6); Potassium 3.2 mmol/L (3.5-5.1); Sodium 140 mmol/L (136-145)
[2017-09-26 05:42] LABS: Phosphorus 1.8 mg/dL (2.3-4.7)
[2017-09-26] MEDS ORDERED: Potassium Phosphate 21 MMOL in Sodium Chloride 0.9% 250 ML 250 ML IVPB SCH (06:30)
[2017-09-26] MEDS ORDERED: Magnesium Sulfate 2 GM in Sodium Chloride 0.9% 100 ML IVPB SCH (06:30)
[2017-09-26] MEDS: Sodium Bicarbonate 75 MEQ in Dextrose 5% in Water 1,000 ML IV SCH (06:36)
[2017-09-26] MEDS: Heparin 5,000 UNITS/ML VIAL SC SCH ×2 (08:23→20:35)
[2017-09-26] MEDS: Famotidine 20 MG TAB PO SCH (08:24)
--- NOTE | 2017-09-26 09:53 | PRG ---
DATE OF SERVICE: 09/26/2017 SUBJECTIVE: The patient feels better, has no acute complaints. OBJECTIVE: VITAL SIGNS: Temperature is 97.9, pulse 67, respirations 16, O2 sat 98%, blood pressure 147/79. HEENT: Unremarkable. NECK: No JVD. CHEST: Clear. CARDIAC: S1 and S2 regular. ABDOMEN: Soft, nontender. EXTREMITIES: No edema. LABORATORY DATA: Sodium 140, potassium 3.2, chloride 110, CO2 of 23, BUN 19, creatinine 0.7, glucose 95. ASSESSMENT: 1. Diarrheal illness. 2. Non-anion gap metabolic acidosis - bicarbonate level better after infusion over the last 24 hours . PLAN: 1. Stop bicarbonate drip. 2. Her potassium is being replaced. 3. She is probably stable to be discharged home otherwise. Pulmonary will sign off the case. Pleas e recall if further assistance needed.
[2017-09-26] MEDS ORDERED: Potassium Chloride 20 MEQ TAB PO SCH (11:45)
--- NOTE | 2017-09-26 11:58 | PRG ---
DATE OF SERVICE: 09/26/2017 SUBJECTIVE: This is a 72-year-old female being seen for acute kidney injury with normalization of cr eatinine. The patient denies any nausea, vomiting or chest pain. PHYSICAL EXAMINATION: GENERAL: Patient is awake, alert. VITAL SIGNS: Afebrile, pulse 76, breathing at 16, blood pressure 157/71. OBJECTIVE: See above. Awake, alert, in no acute distress. GENERAL APPEARANCE AND MENTAL STATUS: Fair. HEAD/NECK: Normocephalic. Atraumatic. EYES: EOMI. No deformity. EARS: Clear. No ulcers. NOSE: Intact. No lesions. MOUTH: Clear. No discharge. THROAT: Clear. No exudate. LUNGS: Clear. No crackles. CARDIAC: S1, S2. No rub. ABDOMEN: Benign. BS+. GENITALIA/RECTUM: Pan absent. BACK/EXTREMITIES: Edema 0+ Ulcer- NEUROLOGICAL: Alert and motor intact. SKIN: Rash- Bruise- LYMPHATICS: Edema- Ulcer- LABORATORY: Potassium 3.2, creatinine 0.71. ASSESSMENT AND RECOMMENDATIONS: 1. Acute kidney injury with chronic kidney disease stage 2. 2. Hypertension, stable. 3. Anemia, stable. 4. Hypokalemia. Recommend 40 mEq potassium by mouth. No indication for dialysis. The patient will follow up with Dr. Christine Siddiqui in [place] and she w ill see me in 1 month.
[2017-09-26 14:20] VITALS: BMI 25.4
--- NOTE | 2017-09-26 15:44 | PDOC.PN ---
- Subjective Encounter Start Date: 09/26/17 Encounter Start Time: 10:30 Subjective: pt up in bed no complains - Objective Resuscitation Status: Resuscitation Status FULL:Full Resuscitation Vital Signs & Weight: Vital Signs (12 hours) Temp Pulse Resp BP Pulse Ox 09/26/17 12:00 97.8 F 81 16 134/85 96 09/26/17 11:42 97.8 F 81 16 134/85 96 09/26/17 08:00 97.9 F 67 16 147/79 H 98 09/26/17 07:24 97.9 F 67 16 147/79 H 98 Weight Admit Weight 145 lb 4.8 oz Weight 144 lb I&O: 09/25/17 09/26/17 09/27/17 06:59 06:59 06:59 Intake Total 4343 1390 Output Total 3425 1350 Balance 918 40 Result Diagrams: 09/26/17 04:47 09/26/17 04:47 Phys Exam - Physical Examination HEENT: PERRLA, moist MMs, sclera anicteric, TM's clear, oral pharynx no lesions , 2+ tonsils Neck: no nodes, no JVD, supple, full ROM Respiratory: no wheezing, no rales, no rhonchi, wheezing present, clear to auscultation bilateral Cardiovascular: RRR, no significant murmur, no rub, gallop, irregular Gastrointestinal: soft, non-tender, no distention, positive bowel sounds stool in colostomy more formed Musculoskeletal: no edema, pulses present, edema present Dx/Plan (1) Gastroenteritis Code(s): K52.9 - NONINFECTIVE GASTROENTERITIS AND COLITIS, UNSPECIFIED Status : Acute (2) Dehydration, severe Code(s): E86.0 - DEHYDRATION Status: Acute (3) Prerenal acute renal failure Code(s): N17.9 - ACUTE KIDNEY FAILURE, UNSPECIFIED Status: Acute (4) Metabolic acidosis Code(s): E87.2 - ACIDOSIS Status: Acute (5) Hypomagnesemia Code(s): E83.42 - HYPOMAGNESEMIA Status: Acute - Plan electrolytes replaced -: bicarb drip stopped -: possible home in am * . Review of Systems - Review of Systems Eyes: negative: Pain, Vision Change, Conjunctivae Inflammation, Eyelid Inflammation, Redness, Other ENT: negative: Ear Pain, Ear Discharge, Nose Pain, Nose Discharge, Nose Congestion, Mouth Pain, Mouth Swelling, Throat Pain, Throat Swelling, Other Respiratory: negative: Cough, Dry, Shortness of Breath, Hemoptysis, SOB with Excertion, Pleuritic Pain, Sputum, Wheezing Cardiovascular: negative: chest pain, palpitations, orthopnea, paroxysmal nocturnal dyspnea, edema, light headedness, other Gastrointestinal: negative: Nausea, Vomiting, Abdominal Pain, Diarrhea, Constipation, Melena, Hematochezia, Other Genitourinary: negative: Dysuria, Frequency, Incontinence, Hematuria, Retention , Other - Medications/Allergies Allergies/Adverse Reactions: Allergies Allergy/AdvReac Type Severity Reaction Status Date / Time Sulfa (Sulfonamide Allergy Verified 09/23/17 18:56 Antibiotics) Medications: Current Medications Acetaminophen (Tylenol) 650 mg PO Q4H PRN PRN Reason: Headache/Fever or Pain Famotidine (Pepcid) 20 mg PO DAILY [facility] Last Admin: 09/26/17 08:24 Dose: 20 mg Heparin Sodium (Porcine) (Heparin) 5,000 units SC BID [facility] Last Admin: 09/26/17 08:23 Dose: 5,000 units Ceftriaxone Sodium 1 gm/ (Sodium Chloride) 100 mls @ 200 mls/hr IVPB 2300 [facility] Stop: 09/26/17 23:59 Last Admin: 09/25/17 23:01 Dose: 100 mls Ondansetron HCl (Zofran Odt) 4 mg PO Q6H PRN PRN Reason: Nausea/Vomiting Sodium Chloride (Flush - Normal Saline) 10 ml IVF Q12HR [facility] Last Admin: 09/26/17 12:15 Dose: 10 ml Sodium Chloride (Flush - Normal Saline) 10 ml IVF PRN PRN PRN Reason: Saline Flush Last Admin: 09/26/17 08:26 Dose: 10 ml
[2017-09-26] MEDS: cefTRIAXone\\ROCEPHIN 1 GM in Sodium Chloride 0.9% 100 ML IVPB SCH (22:33)
[2017-09-27 05:04] LABS: #Eosinphils 0.2 thou/uL (0.0-0.7); #Lymphocytes 0.7 thou/uL (1.20-3.40); #Monocytes 0.4 thou/uL (0.11-0.59); #Neutrophils 2.1 thou/uL (1.40-6.50); %Basophils 0.2 % (0.0-1.0); %Eosinophils 5.2 % (0.0-10.0); %Lymphocytes 20.4 % (21.0-51.0); %Monocytes 10.7 % (0.0-10.0); %Neutrophils 63.5 % (42.0-75.0); Hemoglobin 9.7 g/dL (12.0-16.0); Mean Corpuscular HGB CONC 34.3 g/dL (32.0-36.0); Mean Corpuscular Hemoglobin 29.2 pg (27.0-31.0); Mean Corpuscular Volume 85.1 fL (78.0-98.0); Mean Platelet Volume 6.8 fL (7.4-10.4); Platelet Count 209 thou/uL (130-400); RBC Distribution Width 16.1 % (11.5-14.5); Red Blood Cell (RBC) Count 3.33 mill/uL (4.20-5.40); White Blood Cell (WBC) Count 3.3 thou/uL (4.8-10.8)
[2017-09-27 05:18] LABS: Anion Gap 9 mmol/L (10-20); BUN (Urea Nitrogen) 14 mg/dL (9.8-20.1); Calc. Creatinine Clearance 76 mL/min (70-130); Calcium 8.2 mg/dL (7.8-10.44); Carbon Dioxide 25 mmol/L (23-31); Chloride 110 mmol/L (98-107); Estimated GFR-MDRD 86; Glucose 89 mg/dL (83-110); Magnesium 1.6 mg/dL (1.6-2.6); Phosphorus 2.9 mg/dL (2.3-4.7); Potassium 3.8 mmol/L (3.5-5.1); Sodium 140 mmol/L (136-145)
[2017-09-27] MEDS: Famotidine 20 MG TAB PO SCH (07:43)
[2017-09-27] MEDS: Heparin 5,000 UNITS/ML VIAL SC SCH (07:44)
[2017-09-27 11:21] VITALS: BP 145/76; TEMP 97.7
--- NOTE | 2017-09-28 02:41 | DIS ---
DATE OF ADMISSION: 09/23/2017 DATE OF DISCHARGE: 09/27/2017 DISCHARGE DIAGNOSES: As of the followin. Gastroenteritis. 2. Severe dehydration. 3. Acute renal failure, prerenal. 4. Non-anion gap metabolic acidosis. 5. Hypomagnesemia. HOSPITAL COURSE: The patient is a very pleasant 72-year-old female who is currently receiving some c hemotherapy with Oncology and started having significant nausea, vomiting, and diarrhea. The patient has a colostomy bag stated that normally her stools are formed; however, she had profuse amount of l oose stools for about 3-4 days prior to coming into the hospital. The patient was found to have sign ificant renal failure and was severely dehydrated. The patient was initially admitted to the [facility] and was treated with IV hydration. She was also seen by Nephrology and Pulmonology. The luciano ent continued to improve throughout the hospital stay. On her discharge day, her creatinine was back to baseline at 0.67, her electrolytes were stable. She will follow up with her primary and Oncology as outpatient. Her output was back to normal, was not as loose as it was on prior to her admission. DISCHARGE MEDICATIONS: As the following: Protonix 40 mg daily, carvedilol 1 p.o. b.i.d. She was as ked to hold onto the spironolactone 0.5 mg p.o. daily and also the patient stated that she does take an KELLI inhibitor, I had asked her to stop taking that until Saturday. We will check some BMP on Saturday . Labs will be forwarded to her primary or her oncologist. PHYSICAL EXAMINATION: VITAL SIGNS: Temperature 97.7, 72, 18, 98% on room air, 145/76. GENERAL: She is awake, alert, oriented x2. She does not appear in distress. CARDIOVASCULAR: S1, S2 present. No murmurs, rubs, or gallops. ABDOMEN: Soft, nontender. Bowel sounds are present x2. EXTREMITIES: No edema. Pedal pulses present x2. DISCHARGE INSTRUCTIONS: The patient will be discharged to home. She will follow up with her PCP and also with her oncologist.
--- NOTE | 2017-09-28 11:48 | EKG ---
Test Reason : Blood Pressure : / mmHG Vent. Rate : 092 BPM Atrial Rate : 092 BPM P-R Int : 264 ms QRS Dur : 100 ms QT Int : 408 ms P-R-T Axes : 025 -34 050 degrees QTc Int : 504 ms Sinus rhythm with 1st degree A-V block with frequent , and consecutive Premature ventricular complexe s Left axis deviation Low voltage QRS Inferior infarct , age undetermined Abnormal ECG Confirmed by MILAN WHEAT, ELMER ([id number]), features editor MARCELLO APONTE ([id number]) on 09/28/2017 11:48:08 AM Referred By: Confirmed By:ELMER YATES MD
== END 2017-09-27 11:24 | disposition home or self-care (01) | DRG 683 ==
LOC: ERS 15:52 → IMCU/EMU 17:30 → T4-B 22:21
PROVIDERS: ADMIT Family Medicine; ATTEND Family Medicine
DX: N17.9 Acute kidney failure, unspecified (principal); N39.0 Urinary tract infection, site not specified; I13.0 Hypertensive heart and chronic kidney disease with heart failure and stage 1 through stage 4 chronic kidney disease, or unspecified chronic kidney disease; E87.2 Acidosis; C19 Malignant neoplasm of rectosigmoid junction; E87.1 Hypo-osmolality and hyponatremia; E86.0 Dehydration; I50.9 Heart failure, unspecified; K21.9 Gastro-esophageal reflux disease without esophagitis; N18.4 Chronic kidney disease, stage 4 (severe); Z87.891 Personal history of nicotine dependence; Z93.3 Colostomy status; Z88.2 Allergy status to sulfonamides; Z79.82 Long term (current) use of aspirin; D63.8 Anemia in other chronic diseases classified elsewhere; E87.6 Hypokalemia; K52.9 Noninfective gastroenteritis and colitis, unspecified; E83.42 Hypomagnesemia
CPT/HCPCS: 36415; 71045; 80048; 80053; 81003; 81015; 82553; 83605; 83690; 83735; 83880; 84100; 84484; 85025; 87040; 87045; 87046; 87077; 87086; 87186; 87324; 87328; 87329; 87449; 87899; 93005; 96361; 96365; 96366; A4216; G8978-GP-CK; G8979-GP-CK; G8980-GP-CK; J0696; J1644; J1956; J3475; J3480; J7050; J7070

== ENCOUNTER 2020-05-19 09:30 | Outpatient (CLI) | payer MEDICARE ==
--- NOTE | 2020-05-19 12:30 | PET ---
Radionucleotide PET scan with CT attenuation correction HISTORY: New gastric carcinoma. History of rectal carcinoma. Restaging. COMPARISON: 07/21/2017 and 02/26/2017. FINDINGS: While a well-defined mass is not visible, a focal area of increased radiotracer activity as sociated with the superior margin of the gastric antrum shows max SUV 6.4. Between the aorta and inferior vena cava at the level of the renal veins, there are 2 adjacent lymph nodes short axis diameter to 0.7 cm with max SUV 5.6. At the same level, a 0.4 cm short axis diameter left periaortic retroperitoneal lymph node shows max SUV 3.8. Immediately superior to this is a 0.4 cm left periaortic lymph node max SUV 3.2. No other areas of pathologic activity are apparent. There is physiologic uptake associated with the e nteric system and along each urinary tract. The nondiagnostic CT attenuation correction images show non-hypermetabolic non-focal groundglass pare nchymal opacity throughout each lung. Very nonspecific appearance. There are 2 adenomas associated with the left adrenal gland are each approximately 1.0 cm greatest diameter. No abnormal uptake. Small pockets of gas just posterior to the right side of the T12-L1 intervertebral disc with slight i nferior extension likely represent herniation of disc material. Gallbladder surgically absent. 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 A lobular, somewhat ill-defined area of fluid density posterior and left to the previous location of the lower rectum is measured at 4.2 cm x 3.5 cm greatest diameters on the axial images. No abnormal uptake evident. This suspected fluid collection was not present on the most recent CT exam from 2018. IMPRESSION : Hypermetabolic activity associated with the superior wall of the gastric antrum likely represents the historically stated gastric neoplasm (a well-defined mass not visible on the CT images). Nonenlarged hypermetabolic retroperitoneal lymph nodes at the aorto caval and left periaortic levels as detailed above. Inflammatory/reactive versus neoplastic involvement. Posterior disc herniation at the T12-L1 level. Focal non-hypermetabolic 4.2 cm fluid collection at the left posterior pelvis, extending into the sub cutaneous tissue. This could be better characterized with diagnostic CT pelvis with IV and enteric contrast.
== END 2020-05-19 09:31 | disposition home or self-care (01) ==
LOC: PET 09:30
PROVIDERS: ATTEND Internal Medicine Hematology & Oncology
DX: C16.9 Malignant neoplasm of stomach, unspecified (principal); M51.35 Other intervertebral disc degeneration, thoracolumbar region
CPT/HCPCS: 78815; A9552

== ENCOUNTER 2020-12-02 07:35 | Outpatient (CLI) | payer MEDICARE | END 2020-12-02 07:36 | disposition home or self-care (01) | LOC: SPEC 07:35 | PROVIDERS: ATTEND Internal Medicine Hematology & Oncology | DX: T80.1XXA Vascular complications following infusion, transfusion and therapeutic injection, initial encounter (principal) | CPT/HCPCS: 36598; J1642 ==

== ENCOUNTER 2021-02-28 09:14 | Outpatient (CLI) | payer MEDICARE ==
[2021-02-28] MEDS ORDERED: Iopamidol-370 76% 500 ML 1 ML ONE (13:40)
== END 2021-02-28 09:15 | disposition home or self-care (01) ==
LOC: BICCT 09:14
PROVIDERS: ATTEND Internal Medicine Hematology & Oncology
DX: C20 Malignant neoplasm of rectum (principal); C16.8 Malignant neoplasm of overlapping sites of stomach; N28.9 Disorder of kidney and ureter, unspecified; Z90.49 Acquired absence of other specified parts of digestive tract
CPT/HCPCS: 71260; 74177; 82565